=== PATIENT | male | born 1945 | race Caucasian/White ===

== ENCOUNTER 2018-04-06 19:30 | Emergency (ER) | payer MEDICARE, BC ==
[2018-04-06] MEDS ORDERED: Sodium Chloride 0.9% 1,000 ML IV ONE (19:53)
[2018-04-06] MEDS ORDERED: Ondansetron 4 MG/2 ML SDV IVPUSH ONE (19:53)
[2018-04-06] MEDS ORDERED: Sodium Chloride 0.9% 5 ML Syringe FLUSH PRN (19:53)
--- NOTE | 2018-04-06 20:08 | EDM.PDOC ---
ED HPI GENERAL MEDICAL PROBLEM - General Chief Complaint: Gastrointestinal Problem Stated Complaint: Vomiting/Cough Time Seen by Provider: 04/06/18 19:40 Source of Information: Reports: Patient, EMS, Family - History of Present Illness INITIAL COMMENTS - FREE TEXT/NARRATIVE: 72 YO WM presents to ER complaining of nonproductive cough x 10 days with recent associated vomiting and shortness of breath. Pt reports he became diaphoretic tonight with dizziness and increased vomiting prompting EMS call. Pt denies any chest or back pain, denies any fever but has had intermittent chills. Pt denies any respiratory history or cardiac history but has a longstanding history of IDDM. Duration: Day(s): (10) Location: Reports: Generalized Severity: Moderate Improves with: Reports: None Worsens with: Reports: None Associated Symptoms: Reports: Cough, Diaphoresis, Malaise, Nausea/Vomiting, Shortness of Breath. Denies: Confusion, Chest Pain, cough w sputum, Fever/ Chills, Headaches, Rash, Syncope, Weakness - Related Data Allergies Allergy/AdvReac Type Severity Reaction Status Date / Time No Known Allergies Allergy Verified 04/06/18 20:01 Home Meds: Home Meds Azithromycin [Zithromax] 250 mg PO DAILY #3 tab 04/06/18 [Rx] ED ROS GENERAL - Review of Systems Review Of Systems: See Below Constitutional: Reports: Chills, Malaise. Denies: Fever HEENT: Reports: No Symptoms Respiratory: Reports: Shortness of Breath Cardiovascular: Reports: Lightheadedness. Denies: Chest Pain Endocrine: Reports: No Symptoms GI/Abdominal: Reports: Nausea, Vomiting : Reports: No Symptoms Musculoskeletal: Reports: No Symptoms Skin: Reports: No Symptoms Neurological: Reports: No Symptoms Psychiatric: Reports: No Symptoms Hematologic/Lymphatic: Reports: No Symptoms Immunologic: Reports: No Symptoms ED EXAM, GENERAL - Physical Exam Exam: See Below Exam Limited By: No Limitations General Appearance: Alert, WD/WN, No Apparent Distress Eye Exam: Bilateral Eye: EOMI, PERRL Head: Atraumatic, Normocephalic Neck: Normal Inspection, Supple, Non-Tender, Full Range of Motion Respiratory/Chest: No Respiratory Distress, Lungs Clear, Normal Breath Sounds, No Accessory Muscle Use, Chest Non-Tender Cardiovascular: Normal Peripheral Pulses, Regular Rate, Rhythm, No Edema, No Gallop, No JVD, No Murmur, No Rub GI/Abdominal: Normal Bowel Sounds, Soft, Non-Tender, No Organomegaly, No Distention, No Abnormal Bruit, No Mass Back Exam: Normal Inspection, Full Range of Motion, NT Extremities: Normal Inspection, Normal Range of Motion, Non-Tender, Normal Capillary Refill, No Pedal Edema Neurological: Alert, Oriented, CN II-XII Intact, Normal Cognition, Normal Gait, Normal Reflexes, No Motor/Sensory Deficits Psychiatric: Normal Affect, Normal Mood Skin Exam: Warm, Dry, Intact, Normal Color, No Rash Lymphatic: No Adenopathy EKG INTERPRETATION EKG Date: 04/06/18 Time: 12:52 Rhythm: NSR Rate (Beats/Min): 85 [place]: Normal P-Wave: Present QRS: Normal ST-T: Normal QT: Normal Comparison: NA - No Prior EKG Course - Vital Signs Last Recorded V/S: Last Vital Signs Temp 36.6 C 04/06/18 19:40 Pulse 78 04/06/18 19:40 Resp 16 04/06/18 19:40 BP 167/79 H 04/06/18 19:40 Pulse Ox 97 04/06/18 19:40 - Orders/Labs/Meds Orders: Active Orders 24 hr Category Date Time Status EKG Documentation Completion [RC] ASDIRECTED Care 04/06/18 19:54 Active Peripheral IV Care [RC] . DIRECTED Care 04/06/18 19:54 Active Chest 2V [CR] Stat Exams 04/06/18 19:53 Taken UA W/MICROSCOPIC [URIN] Stat Lab 04/06/18 19:53 Ordered Sodium Chloride 0.9% [Syrex Flush] Med 04/06/18 19:53 Active 5 ml FLUSH Q8HR PRN Peripheral IV Insertion Adult [OM.PC] Routine Oth 04/06/18 19:53 Ordered EKG 12 Lead [EK] Routine Ther 04/06/18 19:53 Ordered Medication Orders Sodium Chloride (Syrex Flush) 5 ml FLUSH Q8HR PRN PRN Reason: Keep Vein Open Labs: Laboratory Tests 04/06/18 04/06/18 04/06/18 Range/Units 19:52 19:52 20:45 WBC 18.7 H (5.0-10.0) 10^3/uL RBC 5.41 (4.50-6.00) 10^6/uL Hgb 16.4 (13.0-17.0) g/dL Hct 48.9 (40.0-52.0) % MCV 90.3 (82.0-92.0) fL MCH 30.2 (27.0-31.0) pg MCHC 33.5 (32.0-36.0) g/dL RDW 12.4 (11.5-14.5) % Plt Count 231 (150-300) 10^3/uL MPV 8.8 (7.4-10.4) fL Neut % (Auto) 87.1 H (50.0-70.0) % Lymph % (Auto) 6.2 L (20.0-40.0) % [place] % (Auto) 3.9 (2.0-8.0) % Eos % (Auto) 1.4 (1.0-3.0) % Baso % (Auto) 1.4 H (0.0-1.0) % Neut # (Auto) 16.2 H (2.5-7.0) 10^3/uL Lymph # (Auto) 1.2 (1.0-4.0) 10^3/uL [place] # (Auto) 0.7 (0.1-0.8) 10^3/uL Eos # (Auto) 0.3 (0.1-0.3) 10^3/uL Baso # (Auto) 0.3 H (0.0-0.1) 10^3/uL Sodium 140 (136-145) mmol/L Potassium 4.8 (3.3-5.3) mmol/L Chloride 103 (98-115) mmol/L Carbon Dioxide 20.4 L (21.0-32.0) mmol/L BUN 26 H (6-25) mg/dL Creatinine 1.31 H (0.51-1.17) mg/dL Est Cr Clr Drug Dosing 55.09 mL/min Estimated GFR (MDRD) 54 mL/min Glucose 182 H (70-110) mg/dL Calcium 9.4 (8.7-10.3) mg/dL Total Bilirubin 0.6 (0.2-1.0) mg/dL AST 28 (15-37) U/L ALT 36 (12-78) U/L Alkaline Phosphatase 65 (46-116) IU/L Creatine Kinase 215 (26-276) U/L CK-MB (CK-2) 2.00 (0.00-4.30) ng/mL Troponin I < 0.04 (0.00-0.070) ng/mL Total Protein 8.3 H (6.4-8.2) g/dL Albumin 3.89 (3.00-4.80) g/dL Lipase 207 (73-393) U/L Specimen Type Urinvoid Urine Color Yellow (YELLOW) Urine Appearance Clear (CLEAR) Urine pH 6.0 (5.0-9.0) Ur Specific [place] 1.015 (1.005-1.030) Urine Protein 30 H (NEGATIVE) mg/dL Urine Glucose (UA) Negative (NEGATIVE) mg/dL Urine Ketones 15 H (NEGATIVE) mg/dL Urine Occult Blood Negative (NEGATIVE) Urine Nitrite Negative (NEGATIVE) Urine Bilirubin Negative (NEGATIVE) Urine Urobilinogen 0.2 (0.2-1.0) E.U./dL Ur Leukocyte Esterase Trace H (NEGATIVE) Urine RBC 0-5 /HPF Urine WBC 0-5 /HPF Ur Epithelial Cells Rare /LPF Urine Bacteria Rare (NONE TO FEW) /HPF Meds: Medications Generic Name Dose Route Start Last Admin Trade Name Freq PRN Reason Stop Dose Admin Sodium Chloride 5 ml 04/06/18 19:53 Syrex Flush FLUSH Q8HR PRN Keep Vein Open Discontinued Medications Generic Name Dose Route Start Last Admin Trade Name Frelarry PRN Reason Stop Dose Admin Azithromycin 500 mg 04/06/18 21:04 Zithromax PO 04/06/18 21:05 ONETIME ONE Ceftriaxone Sodium 1 gm 04/06/18 21:04 Rocephin IVPUSH 04/06/18 21:05 ONETIME ONE Sodium Chloride 1,000 mls @ 999 mls/hr 04/06/18 19:53 04/06/18 20:03 Normal Saline IV 04/06/18 20:53 999 mls/hr .BOLUS ONE Administration Ondansetron HCl 4 mg 04/06/18 19:53 04/06/18 20:02 Zofran IVPUSH 04/06/18 19:54 4 mg ONETIME ONE Administration - Radiology Interpretation Free Text/Narrative:: CXR- NAD Departure - Departure Time of Disposition: 21:08 Disposition: Home, Self-Care 01 Condition: Good Clinical Impression: Pneumonia Qualifiers: Aspiration pneumonia type: unspecified Lung location: unspecified part of lung Vomiting Qualifiers: Vomiting Intractability: non-intractable Nausea presence: with nausea - Discharge Information Prescriptions: Azithromycin [Zithromax] 250 mg PO DAILY #3 tab Instructions: Community-Acquired Pneumonia, Adult, Nausea and Vomiting, Adult, [id number] Referrals: PCP,Not In Area [Primary Care Provider] - Forms: ED Department Discharge Additional Instructions: 1. Discharge home 2. zpak 3. zofran 4mg ODT Q6 PRn vomiting 4. return to ER for worsening shortness of breath, chest pain or intractable vomiting 5. follow up with PCP in 2 days for recheck - My Orders Last 24 Hours: My Active Orders 04/06/18 19:53 Chest 2V [CR] Stat UA W/MICROSCOPIC [URIN] Stat Sodium Chloride 0.9% [Syrex Flush] 5 ml FLUSH Q8HR PRN Peripheral IV Insertion Adult [OM.PC] Routine EKG 12 Lead [EK] Routine 04/06/18 19:54 EKG Documentation Completion [RC] ASDIRECTED Peripheral IV Care [RC] . DIRECTED - Assessment/Plan Last 24 Hours: My Active Orders 04/06/18 19:53 Chest 2V [CR] Stat UA W/MICROSCOPIC [URIN] Stat Sodium Chloride 0.9% [Syrex Flush] 5 ml FLUSH Q8HR PRN Peripheral IV Insertion Adult [OM.PC] Routine EKG 12 Lead [EK] Routine 04/06/18 19:54 EKG Documentation Completion [RC] ASDIRECTED Peripheral IV Care [RC] . DIRECTED Assessment:: 1. Suspect Pneumonia 2. Vomiting resolved Plan: 1. Discharge home 2. zpak 3. zofran 4mg ODT Q6 PRn vomiting 4. return to ER for worsening shortness of breath, chest pain or intractable vomiting 5. follow up with PCP in 2 days for recheck
[2018-04-06 20:37] LABS: CHLORIDE,CL 103 mmol/L (98-115); SODIUM,NA 140 mmol/L (136-145)
[2018-04-06] MEDS ORDERED: cefTRIAXone 1 GM Vial IVPUSH ONE (21:04)
[2018-04-06] MEDS ORDERED: Azithromycin 250 MG Tab PO ONE (21:04)
[2018-04-06] MEDS ORDERED: Ondansetron 4 MG Tab.DIS PO PRN (21:10)
[2018-04-06] MEDS ORDERED: Azithromycin 250 MG Tab ONE (21:27)
[2018-04-06] MEDS: Azithromycin 250 MG Tab PO SCH ×2 (23:27→23:28)
== END 2018-04-06 21:45 | disposition home or self-care (01) ==
LOC: KA.ED 19:30
DX: J18.9 Pneumonia, unspecified organism (principal); R11.2 Nausea with vomiting, unspecified
CPT/HCPCS: 71046; 80053; 81001; 82550; 82553; 83690; 84484; 85025; 93005; 96361; 96374; 96375; 99285; A9270; J0696; J2405; J7030; 99284